=== PATIENT | female | born 1975 ===

== ENCOUNTER 2022-07-08 12:00 | Inpatient (IN) | payer OTHER ==
[~2022-07-08] VITALS: Ht 162.6 cm; Wt 107.0 kg
[2022-07-08] MEDS ORDERED: PROTO PO (13:32)
[2022-07-08] MEDS ORDERED: GRALISE600 MG PO (13:32)
[2022-07-08] MEDS ORDERED: PEPCID AC20 MG PO (13:33)
[2022-07-08] MEDS ORDERED: CLONAZEPAM2 MG PO (13:33)
[2022-07-08] MEDS ORDERED: CRESTOR20 MG PO (13:33)
[2022-07-13] MEDS ORDERED: COLACE100 MG PO (07:37)
[2022-07-13] MEDS ORDERED: MEDROLPACK PO (07:38)
[2022-07-13] MEDS ORDERED: PERCOCET 5-3251 EACH PO (07:38)
== END 2022-07-14 09:11 | disposition home or self-care (01) | DRG 518 ==
LOC: O/R 07-13 05:27 → SURG 07-13 07:00 → PED 07-13 11:12 → SURG 07-13 12:00 → PED 07-14 09:11
PROVIDERS: ADMIT Orthopaedic Surgery Orthopaedic Surgery of the Spine; ATTEND Orthopaedic Surgery Orthopaedic Surgery of the Spine
PROC: 0RR30JZ Replacement of Cervical Vertebral Disc with Synthetic Substitute, Open Approach (ICD-10-PCS; principal; 2022-07-13 07:00)
DX: M50.022 Cervical disc disorder at C5-C6 level with myelopathy (principal); M47.12 Other spondylosis with myelopathy, cervical region; M48.02 Spinal stenosis, cervical region